=== PATIENT | male | born 1995 | race American Indian/Alaskan Native ===

== ENCOUNTER 2024-09-18 13:29 | Emergency (ER) | payer MEDICAID, SELFPAY ==
[2024-09-18 13:32] VITALS: BMI 30.1
[2024-09-18 13:43] VITALS: BP 150/80; PULSE 66; RESP 18; TEMP 36.7; O2SAT 100; BMI 30.7
--- NOTE | 2024-09-18 14:22 | XR_ITS ---
Examination: Hand, left 3 views Technique: Hand AP, oblique, lateral 3 views Date and time of exam: September 18, 2024 1427 hours INDICATIONS: Puncture injury to the hand today, hand pain FINDINGS: Air in the soft tissue adjacent to the first metacarpal and radial side of the wrist Old healed fracture first metacarpal No acute fracture No foreign body IMPRESSION: No opaque foreign body
--- NOTE | 2024-09-18 14:32 | EDNOTE_ITS ---
ED General RME/HPI General Chief complaint: Hand/Wrist Problems Stated complaint: NAILS IN HAND Time Seen by Provider: 09/18/24 13:54 Arrival date/time: 09/18/24 13:29 CC: Left hand pain HPI patient presents the ER via EMS with a hand firmly attached to a 2 x 4 which shows clear evidence of 2- 16 p galvanized fence nails embedded into the base of the thumb. Patient is complaining of mild thumb tip numbness but has good cap refill less than 2 seconds small amount of bleeding from both entrance sites. The nails are are embedded at different angles secondary to how they were driven through the 2 x 4 localized pain is 6-8 on a 10 scale. Patient states he has no other injuries. Related Data Previous Rx's ?Medication ?Instructions ?Recorded cephalexin 500 mg capsule 500 mg PO TID #21 caps 09/18/24 Allergies Allergy/AdvReac Type Severity Reaction Status Date / Time lidocaine Allergy Rash Verified 09/18/24 13:35 shellfish derived Allergy Rash, Verified 09/18/24 13:35 ITCHING Review of Systems Review of Systems Narrative Review of Systems: GEN: No fever, no chills, no weight loss EYES: No discharge, no visual changes, no pain HEENT: No ear pain, no congestion, no sore throat PULM: No shortness of breath, no cough, no congestion CV: No chest pain, no dyspnea on exertion, no palpitations GI: No nausea, no vomiting, no diarrhea, no pain, no constipation : No frequency, no urgency, no dysuria MUSC/SKEL: No joint pain, no back pain,+ hand pain SKIN: No rash PSYCH: No hallucinations, no depression HEME/LYMPH: No easy bleeding or bruising tendencies NEURO: No weakness, no headache ED Exam Narrative Physical exam: [General: Considerable concern for but not in any acute distress Head normocephalic HEENT: Within acceptable limits Neck is supple nontender Chest equal chest rise nontender to palpation Respiratory: Clear to auscultation no wheezes crackles or rubs CV: Rate rhythm is regular no murmurs rubs or clicks Abdomen is soft nontender no masses positive bowel sounds all 4 quadrants Back: No CVA tenderness no spinous process tenderness from cervical spine thoracic and lumbar spine Skin: Impalement of 2 galvanized nails into the femur are eminence of the left thumb. Good range of motion neurosensory intact cap refill less than 2 seconds to the thumb. Intact no petechiae rash induration ulceration or crepitus Extremities: Moving all extremity against resistance cap refill less than 2 seconds neurosensory intact Neuro: Awake alert oriented x3 Glascow coma 15 no focal deficits] Course Course Course Narrative: At 1645, attempted to sew the patient's thumb after it was flushed extensively however the patient was not in the bed I was informed the patient went to the bathroom, 5 minutes later security report the patient went out for smoking never returned the patient had an IV in his line in his hand, the incision made to release the pressure off the first nail was never sewn shut and no dressing had been applied. Patient had received a gram of Ancef. Quality Measures VTE prophylaxis Orders Category Date Time Status Miscellaneous Nursing Order NOW Care 09/18/24 14:26 Active XR hand comp LT min 3V Stat Exams 09/18/24 14:22 Completed Lidocaine 1% 20 ml [Xylocaine 1% 20 ML] Med 09/18/24 14:10 Discontinued 20 ml INFL X1 ONE Tet,Diphth,Pertuss(Acell)-Tdap [Boostrix Vacc] Med 09/18/24 14:12 Discontinued 0.5 ml IMI .ONCE ONE ceFAZolin/D5W 1 GM IVPB [Ancef Ivpb] Med 09/18/24 14:36 Discontinued 1 gm in 50 ml IV X1 Vital Signs Vital signs: Vital Signs Temperature 98.1 F 09/18/24 13:43 Pulse Rate 66 09/18/24 13:43 Respiratory Rate 18 09/18/24 13:43 Blood Pressure 150/80 H 09/18/24 13:43 Pulse Oximetry (%) 100 09/18/24 13:43 Oxygen Delivery Method Room Air 09/18/24 13:43 Procedures -ED Procedure Comment Foreign body removal: Consent obtained: Using 1% lidocaine without epinephrine, the puncture sites in the eminence edema are of the left thumb base were injected with 12 mL. The distal nail was superficially underneath the tissue using a #11 scalpel that nail was freed via 2 cm full-thickness incision. And then using direct force, the 2 x 4 with the proximal nail and board was pulled away from the base of the thumb without complication patient tolerated the procedure well. This was preceded by oozing from both sites. Site was then flushed with 1 L of sterile water. Bulky dressing was applied. [facility] Patient data External records reviewed:: [facility] previous records and EMS form Clinical information provided by:: patient and EMS Social determinants that could affect healthcare access:: none Patient has the following chronic illnesses:: None How is presenting disease/condition affected by chronic disease/condition?: uneffected by Evaluation data The following diagnostics were reviewed and interpreted by me:: radiology exam(s) Lab and/or radiology exams considered but not ordered:: X-ray of the hand shows no foreign body Interpretation Summary: Puncture wound with removal of foreign body Medications Medications considered but not ordered:: None Medication administrations:: Medication Administration History Discontinued Medications Diphtheria/Tetanus/Acell Pertussis (Diphth,Pertuss(Acell),Tet Vac 0.5 Ml Vial) 0.5 ml IMi .ONCE ONE Stop: 09/18/24 14:13 Last Admin: 09/18/24 14:33 Dose: 0.5 ml Documented By: Cefazolin Sodium/Dextrose (Ancef Ivpb) 1 gm in 50 mls @ 100 mls/hr IV X1 ONE Stop: 09/18/24 15:05 Last Infusion: 09/18/24 16:22 Dose: Infused Documented By: Admin: 09/18/24 14:43 Dose: 100 mls/hr Documented By: MS Lidocaine HCl (Lidocaine Hcl 1% 20 Ml Vial) 20 ml INFL X1 ONE Stop: 09/18/24 14:11 Last Admin: 09/18/24 16:21 Dose: 20 ml Documented By: ZARINA Comments: ADMINISTERED BY PROVIDER None Consultations Consultation(s) initiated? (list below): No Diagnosis Differential Diagnosis ED Complaint MDM: Puncture wound open thumb fracture laceration Most likely diagnosis given after review of the tests above:: Puncture wound laceration to thumb Admission Indicated Admission indicated?: not indicated Explain why admission is indicated or not indicated:: Patient eloped Admission Request Was there a request for admission?: No Disposition Plan Disposition Plan: other (specify) (Patient eloped) Medical Decision Making Differential Diagnosis Differential Diagnosis: Puncture wound open thumb fracture laceration Discharge Plan Plan Patient Disposition: Elopement Disposition Comment: Unknown medical condition Prescriptions/Referrals Prescriptions/Med Rec: New cephalexin 500 mg capsule 500 mg PO TID Qty: 21 0RF [facility]TI[facility] Riojas [Primary Care Provider] - In 1 week Problem List Clinical Impression: Puncture wound of finger of left hand Patient/Caregiver Discharge Instructions Other Activity Instructions:: Take the medications as prescribed keep the site clean and dry Education Materials: ED Puncture Wound (General) Print Language: Liberian PA/RICKEY Supervising Physician PA/MED AIDE Supervising Physician: Ryan Osullivan ENP
[2024-09-18] MEDS: DIPHTH,PERTUSS(ACELL),TET VAC 0.5 ML VIAL IMi (14:33)
[2024-09-18] MEDS: ceFAZolin/D5W 1 GM IVPB 1 GM/50 ML BAG IV (14:43)
[2024-09-18] MEDS: LIDOCAINE HCL 1% 20 ML VIAL INFL (16:21)
--- NOTE | 2024-09-18 16:37 | PC.NURSE ---
PT WAS SEEN OUTSIDE SMOKING WEED BY SECURITY, SECURITY TOLD PT HE IS NOT ALLOWED TO SMOKE ON PREMISES, PT WALKED OFF. THIS RN HAS ATTEMPTED TO GET AHOLD OF PT MULTIPLE TIMES, PT DID HAVE AN IV. HUB INVENTORY SPECIALIST MADE AWARE.
== END 2024-09-18 17:51 | disposition left against medical advice (07) ==
PROVIDERS: Emergency Provider Emergency Medicine; PCP Nurse Practitioner Family
DX: S61.042A Puncture wound with foreign body of left thumb without damage to nail, initial encounter (principal); W45.0XXA Nail entering through skin, initial encounter; Z23 Encounter for immunization; Z53.29 Procedure and treatment not carried out because of patient's decision for other reasons
CPT/HCPCS: 10120; 73130; 90471; 90715; 99284; J0689; J3490; J0690

== ENCOUNTER 2024-09-19 09:51 | Emergency (ER) | payer MEDICAID, SELFPAY ==
[2024-09-19 09:52] VITALS: BMI 29.9
[2024-09-19 10:06] VITALS: BP 156/83; PULSE 78; RESP 18; TEMP 36.7; O2SAT 100
--- NOTE | 2024-09-19 10:28 | PD.EDWOUND ---
ED Wound/Laceration-RME/HPI General Chief Complaint: Wound/Laceration Stated Complaint: LACERATION TO LEFT HAND Time Seen by Provider: 09/19/24 09:54 Arrival date/time: 09/19/24 09:51 29-year-old male with injury to his left hand yesterday presents requesting suture placement patient eloped from ER yesterday Limitations: no limitations Related Data Previous Rx's ?Medication ?Instructions ?Recorded cephalexin 500 mg capsule 500 mg PO TID #21 caps 09/18/24 cephalexin 500 mg capsule 500 mg PO BID 10 days #20 caps 09/19/24 ibuprofen 600 mg tablet 600 mg PO Q6H #30 tabs 09/19/24 Allergies Allergy/AdvReac Type Severity Reaction Status Date / Time lidocaine Allergy Rash Verified 09/18/24 13:35 shellfish derived Allergy Rash, Verified 09/18/24 13:35 ITCHING Review of Systems Review of Systems Systems Reviewed: All systems reviewed, normal except as documented Constitutional Constitutional: Reports system reviewed and no additional complaints, except as documented, Denies fever(s) and Denies headache(s) Eyes Eyes: Reports system reviewed and no additional complaints, except as documented and Denies blurry vision ENT Ears, Nose, Mouth, and Throat: Reports system reviewed and no additional complaints, except as documented, Denies headache(s), Denies nasal congestion and Denies nasal discharge Cardiovascular Cardiovascular: Reports system reviewed and no additional complaints, except as documented, Denies chest pain and Denies dyspnea Respiratory Respiratory: Reports system reviewed and no additional complaints, except as documented, Denies chest congestion, Denies cough and Denies dyspnea Gastrointestinal Gastrointestinal: Reports system reviewed and no additional complaints, except as documented and Denies abdominal pain Integumentary/Breasts Skin/Breast: Reports system reviewed and no additional complaints, except as documented, Denies rash and Reports wounds (Laceration left hand) Neurologic Neurologic: Reports system reviewed and no additional complaints, except as documented, Reports as per HPI and Denies headache(s) Past Medical History Past Medical History CARDIAC: Negative Cardiac Disorders or Congestive Heart Failure RESPIRATORY: Positive Asthma; Negative Chronic Obstructive Pulmonary Disease (COPD) GENITOURINARY: Negative Renal Disease ENDOCRINE: Negative Diabetes Mellitus Type 1 or Diabetes Mellitus Type 2 HEMATOLOGIC: Negative Sickle Cell Disease Surgical History SURGICAL: Positive Tonsillectomy Social History SMOKING STATUS: Never smoker SUBSTANCE USE: does not use ED Exam General Limitations: Present no limitations General appearance: Present alert and in no apparent distress Head Head exam: Present atraumatic Eye Eye exam: Present normal appearance, PERRL and EOMI ENT ENT exam: Present normal exam, normal oropharynx and mucous membranes moist Neck Neck exam: Present normal inspection, full ROM and trachea midline Chest Chest inspection: Present normal inspection and symmetric chest wall rise Respiratory Respiratory exam: Present normal lung sounds bilaterally Cardiovascular Cardiovascular exam: Present regular rate, normal rhythm and normal heart sounds Abdominal Exam Abdominal exam: Present soft and normal bowel sounds Extremities Exam Extremities exam: Present full ROM, tenderness, normal capillary refill and other (Full range of motion no evidence of tendon or ligamentous injury) Back Exam Back exam: Present normal inspection and full ROM Neurological Exam Neurological exam: Present alert, oriented X3 and CN II-XII intact Psychiatric Psychiatric exam: Present normal affect and normal mood Skin Skin exam: Present warm, dry and other (Laceration left hand) Course Quality Measures none Vital Signs Vital signs: Vital Signs Temperature 98.0 F 09/19/24 10:06 Pulse Rate 78 09/19/24 10:06 Respiratory Rate 18 09/19/24 10:06 Blood Pressure 156/83 H 09/19/24 10:06 Pulse Oximetry (%) 100 09/19/24 10:06 Oxygen Delivery Method Room Air 09/19/24 10:06 O2 saturation 100% room air with normal limits Procedures -ED Laceration Laceration 1: Site: hand Side (If applicable): left Size (cm): 4 Description: linear Depth: simple, single layer Local Anesthetic: lidocaine 1% Pre-repair: wound explored Skin layer closed with: nylon Size (cm): 4-0 Number of sutures: 10 Technique: simple, interrupted Wound / Laceration MDM Narrative MDM Narrative:: 29-year-old male with injury to his left hand yesterday presents requesting suture placement patient eloped from ER yesterday On exam patient appears to have 4 cm irregular shaped laceration to the left hand on the dorsal aspect I explained to the patient as the patient has a laceration from yesterday typically we do not close these lacerations patient is insistent on laceration repair even if it will cause infection Wound irrigated copiously laceration repaired with 10 sutures wound is well-approximated Patient discharged home with antibiotics and ibuprofen patient instructed to sutures removed in 10 to 14 days Patient discharged home in no distress to follow-up with primary care doctor in the next 24 to 48 hours and for any worsening symptoms to return to the ER immediately Patient data External records reviewed:: [facility] previous records Clinical information provided by:: patient Social determinants that could affect healthcare access:: none Patient has the following chronic illnesses:: None How is presenting disease/condition affected by chronic disease/condition?: no chronic disease Evaluation data The following diagnostics were reviewed and interpreted by me:: other (specify) (N/A) Lab and/or radiology exams considered but not ordered:: Consider not indicated Interpretation Summary: N/A Medications / Prescriptions Medications or Prescriptions considered but not ordered:: Given Medication administrations:: Given Consultations Consultation(s) initiated? (list below): No Diagnosis Wound Differential Diagnosis: laceration, abrasion and avulsion of skin Most likely diagnosis given after review of the tests above:: Laceration Admission Indicated Admission indicated?: not indicated Admission Request Was there a request for admission?: No Disposition Plan Disposition Plan: Discharge Discharge Attestation Discharge Attestation: The patient and all family members were given an opportunity to ask questions and understood the discharge instructions. Discharge instructions specifically effects, indications for sooner follow up or return to the emergency department, and the expected course of current diagnosis. Patient condition: Stable Discharge Plan Plan Patient Disposition: HOME (Self Care) Disposition Comment: Stable Prescriptions/Referrals Prescriptions/Med Rec: New cephalexin 500 mg capsule 500 mg PO BID 10 Days Qty: 20 0RF ibuprofen 600 mg tablet 600 mg PO Q6H Qty: 30 0RF No Action cephalexin 500 mg capsule 500 mg PO TID Qty: 21 0RF Referrals: Ángel Coronado PA-C [Primary Care Provider] - In 1 week Problem List Clinical Impression: Laceration of hand, left Patient/Caregiver Discharge Instructions Education Materials: ED Laceration: All Closures Additional Instructions: Please follow up with your primary care doctor in the next 24-48hrs for any worsening symptoms return here immediately Please have sutures removed in 10 to 14 days Print Language: Hungarian Stand Alone Forms: Esha Award Info., Patient Portal Info Letter PA/RICKEY Supervising Physician PA/RICKEY Supervising Physician: dr garcia
== END 2024-09-19 10:36 | disposition home or self-care (01) ==
PROVIDERS: Emergency Provider Emergency Medicine; PCP Physician Assistant
DX: S61.412A Laceration without foreign body of left hand, initial encounter (principal); X58.XXXA Exposure to other specified factors, initial encounter
CPT/HCPCS: 12002; 99283

== ENCOUNTER → 2025-07-31 | Outpatient (CLI) | payer MEDICAID, SELFPAY ==
--- NOTE | 2025-07-31 16:45 | XR_ITS ---
Exam: MRI knee without contrast, left Date and time of exam: July 31, 2025, 1945 hours, comparison September 11, 2020 INDICATIONS: Meniscus knee injury 3 years ago, persistent swellings pain and loss of function Technique: Multiple axial, coronal, and sagittal sections on the knee have been obtained. T2-Weighted sagittal, fat-suppressed images, TR 3,500, TE 62, T2 weighted coronal fat-saturated images, TR 3,500, TE 62 Proton density sagittal sections, TR 1800, TE 31. T-1 weighted coronal images, TR 524, TE 13.0 Findings: Medial meniscus anterior horn intact. Medial meniscus, body meniscocapsular separation with 30 mm meniscus cyst. Posterior horn medial meniscus multiple horizontal and oblique tears, meniscocapsular separation. Lateral meniscus anterior horn is intact Lateral meniscus, body is intact Posterior horn lateral meniscus intact Anterior cruciate ligament moderate sprain Posterior cruciate ligament complete tear Knee effusion is moderate. Quadriceps and patellar tendons appear intact. There is no evidence of tendinosis. Inflammatory change or fracture of Hoffa's fat pad is not seen. Medial patellar facet demonstrates no thinning. Lateral patellar facet cartilage demonstrates no thinning. Trochlear cartilage demonstrates no thinning. Marrow signal adequate. Medial collateral ligament appears intact. Illiotibial band and fibular collateral ligament are intact. Biceps femoris tendons appear intact. Medial femoral condylar articular cartilage demonstrates mild thinning. Lateral femoral condylar articular cartilage demonstrates no thinning. Tibial plateau cartilage demonstrates mild medial thinning. Impression: Meniscocapsular separation body and posterior horn medial meniscus Complete tear of posterior cruciate ligament Moderate sprain anterior cruciate ligament
== END | disposition home or self-care (01) ==
PROVIDERS: PCP Nurse Practitioner Family; Referring Provider Nurse Practitioner Family; Visit Provider Nurse Practitioner Family
DX: S83.195A Other dislocation of left knee, initial encounter (principal); S83.522A Sprain of posterior cruciate ligament of left knee, initial encounter; S83.512A Sprain of anterior cruciate ligament of left knee, initial encounter; X58.XXXA Exposure to other specified factors, initial encounter
CPT/HCPCS: 73721